=== PATIENT | female | born 1955 | race African-American/Black ===

== ENCOUNTER 2022-05-21 12:50 | Inpatient (IN) | payer OTHER ==
[~2022-05-21] VITALS: Ht 157.5 cm; Wt 85.3 kg
[2022-05-21] MEDS ORDERED: LIDOCAINE HCL/PF 1% 2ML VIAL ONE (13:02)
[2022-05-21] MEDS ORDERED: FUROSEMIDE 40MG/4ML VIAL IVP ONE (14:00)
[2022-05-21] MEDS ORDERED: VANCOMYCIN 1G PREMIX 200 ML IV ONE (14:15)
[2022-05-21] MEDS ORDERED: PIPERACILLIN/TAZ 3.375G PREMIX 50 ML IV ONE (14:15)
[2022-05-21 14:28] LABS: BASOPHILS % 0.7 % (0.0-2.0); EOSINOPHILS % 1.1 % (0.0-5.0); HEMOGLOBIN. 10.1 g/dL (12.0-16.0); LYMPHOCYTES % 11.3 % (20.0-50.0); MEAN CORPUSCULAR HEMOGLOBIN 19.6 pg (28.0-32.0); MEAN CORPUSCULAR VOLUME 65.9 fL (81.0-99.0); MEAN PLATELET VOLUME 7.7 fl (7.4-10.4); MONOCYTES % 7.3 % (2.0-8.0); NEUTROPHILS % 79.6 % (40.0-76.0); PLATELET 390 x1000/uL (130-400); RED BLOOD CELL COUNT 5.17 mill/uL (4.2-5.4); RED CELL DISTRIBUTION WIDTH 21.1 % (11.6-14.6)
[2022-05-21 14:35] LABS: CHLORIDE 100 mEq/L (98-107)
[2022-05-21 15:00] LABS: PLATELET ESTIMATE NORMAL
[2022-05-21 15:14] LABS: BG BASE EXCESS 0.7 mmol/L (-2.0-2.0); BG CARBOXYHEMOGLOBIN 0.7 % (0.5-1.5); BG DEOXYHEMOGLOBIN 3.2 % (0.0-5.0); BG FRACTION INSPIRED OXYGEN 50; BG HCO3 ACT 24.5 mmol/L (22.0-26.0); BG METHEMOGLOBIN 0.5 % (0.0-1.5); BG OXYGEN SATURATION 96.8 % (92.0-98.5); BG OXYHEMOGLOBIN 95.6 % (94.0-97.0); BG PCO2 36.2 mmHg (35.0-45.0); BG PH 7.449 (7.350-7.450); BG PO2 93.7 mmHg (75.0-100.0); BG SAMPLE SITE LEFT RADIAL; BG TOTAL HEMOGLOBIN 10.5 g/dL (12.0-18.0); BG VENT MODE MASK - BIPAP
[2022-05-21] MEDS ORDERED: VANCOMYCIN 1GM PMX (XELLIA) 200 ML IV NR (15:45)
[2022-05-21] MEDS ORDERED: IPRATROPIUM/ALBUTEROL 0.5-3(2.5)MG/3ML NEB HHN PRN ×2 (16:15→17:00)
[2022-05-21 16:47] LABS: CHLORIDE 100 mEq/L (98-107)
[2022-05-21] MEDS ORDERED: CLONIDINE 0.1MG TABLET PO PRN (17:00)
[2022-05-21] MEDS ORDERED: GUAIFENESIN 200MG/10ML SUGAR FREE UDC PO PRN (17:00)
[2022-05-21] MEDS ORDERED: ONDANSETRON HCL 4MG/2ML INJ IV PRN (17:00)
[2022-05-21] MEDS ORDERED: MAGNESIUM/ALUMINUM HYDROXIDE/SIMETHICONE 30ML UDC PO PRN (17:00)
[2022-05-21] MEDS ORDERED: DOCUSATE SODIUM 100MG CAPSULE PO PRN (17:00)
[2022-05-21] MEDS ORDERED: ACETAMINOPHEN 325MG TABLET PO PRN (17:00)
[2022-05-21] MEDS ORDERED: CEFTRIAXONE 1 G PREMIX 50 ML IV SCH (17:00)
[2022-05-21 17:10] LABS: CLARITY URINE CLEAR (CLEAR); COLOR URINE YELLOW (YELLOW); KETONES URINE NEGATIVE (NEGATIVE); LEUKOCYTE ESTERASE URINE 1+ (NEGATIVE); NITRITE URINE NEGATIVE (NEGATIVE); OCCULT BLOOD URINE 3+ (NEGATIVE); PH URINE 5.5 (4.5-8.0); PROTEIN URINE TRACE (NEGATIVE); SPECIFIC GRAVITY URINE 1.012 (1.005-1.030)
[2022-05-21] MEDS ORDERED: AZITHROMYCIN 500 MG in DEXT 5% WATER 250 ML IV SCH (17:15)
[2022-05-21] MEDS: IPRATROPIUM BROMIDE (0.02%) 0.5MG/2.5ML NEB HHN SCH ×2 (20:35→23:17)
[2022-05-21] MEDS: AMLODIPINE 10MG TABLET PO SCH (21:12)
[2022-05-21] MEDS: ENOXAPARIN 40MG/0.4ML SYR SUBCUT SCH (21:14)
[2022-05-21] MEDS: CEFTRIAXONE 1,000 MG in DEXTROSE 5% WATER 50 ML IV SCH (21:14)
[2022-05-22] VITALS (11 sets, daily range): BP systolic 98–122; BP diastolic 62–81
[2022-05-22] MEDS: TRAMADOL 50MG TABLET PO PRN ×2 (02:34→17:55)
[2022-05-22] MEDS: IPRATROPIUM BROMIDE (0.02%) 0.5MG/2.5ML NEB HHN SCH ×5 (04:55→20:36)
[2022-05-22] MEDS: AMLODIPINE 10MG TABLET PO SCH (08:43)
[2022-05-22 10:40] LABS: BASOPHILS % 0.6 % (0.0-2.0); EOSINOPHILS % 0.8 % (0.0-5.0); HEMATOCRIT. 30.6 % (36.0-48.0); LYMPHOCYTES % 8.8 % (20.0-50.0); MEAN CORPUSCULAR HEMOGLOBIN 19.3 pg (28.0-32.0); MEAN CORPUSCULAR VOLUME 65.4 fL (81.0-99.0); MEAN PLATELET VOLUME 7.4 fl (7.4-10.4); MONOCYTES % 10.2 % (2.0-8.0); NEUTROPHILS % 79.6 % (40.0-76.0); PLATELET 317 x1000/uL (130-400); RED BLOOD CELL COUNT 4.67 mill/uL (4.2-5.4); RED CELL DISTRIBUTION WIDTH 21.2 % (11.6-14.6)
[2022-05-22 10:52] LABS: CHLORIDE 99 mEq/L (98-107)
[2022-05-22 10:57] LABS: INR 1.1; PROTHROMBIN TIME 11.5 sec (9.6-11.0)
[2022-05-22 10:59] LABS: HDL CHOLESTEROL 23 mg/dL (40-59); LDL CHOLESTEROL 108 mg/dL (5-100)
[2022-05-22] MEDS ORDERED: BISACODYL 10MG SUPP PR NR (17:30)
[2022-05-22] MEDS: PANTOPRAZOLE SODIUM 40 MG/VIAL IV SCH (17:54)
[2022-05-22] MEDS: CEFTRIAXONE 1,000 MG in DEXTROSE 5% WATER 50 ML IV SCH (17:55)
[2022-05-22] MEDS: ENOXAPARIN 40MG/0.4ML SYR SUBCUT SCH (18:00)
[2022-05-22 18:25] LABS: TOTAL IRON BINDING CAPACITY 193 ug/dL (250-450)
[2022-05-22 18:55] LABS: FOLIC ACID (FOLATE) SERUM 13.6 ng/mL (>5.38)
[2022-05-22] MEDS: AZITHROMYCIN 500 MG in DEXT 5% WATER 250 ML IV SCH (20:10)
[2022-05-23] VITALS (10 sets, daily range): BP systolic 86–142; BP diastolic 52–75
[2022-05-23] MEDS: IPRATROPIUM BROMIDE (0.02%) 0.5MG/2.5ML NEB HHN SCH ×6 (00:30→20:49)
[2022-05-23 06:00] LABS: CHLORIDE 101 mEq/L (98-107)
[2022-05-23 06:27] LABS: BASOPHILS % 0.4 % (0.0-2.0); EOSINOPHILS % 2.3 % (0.0-5.0); HEMATOCRIT. 28.9 % (36.0-48.0); HEMOGLOBIN. 8.7 g/dL (12.0-16.0); MEAN CORPUSCULAR HEMOGLOBIN 19.6 pg (28.0-32.0); MEAN CORPUSCULAR VOLUME 64.8 fL (81.0-99.0); MEAN PLATELET VOLUME 7.9 fl (7.4-10.4); MONOCYTES % 9.9 % (2.0-8.0); NEUTROPHILS % 76.4 % (40.0-76.0); PLATELET 306 x1000/uL (130-400); RED BLOOD CELL COUNT 4.47 mill/uL (4.2-5.4); RED CELL DISTRIBUTION WIDTH 20.9 % (11.6-14.6)
[2022-05-23] MEDS: PANTOPRAZOLE SODIUM 40 MG/VIAL IV SCH (08:51)
[2022-05-23] MEDS: AMLODIPINE 10MG TABLET PO SCH (09:00)
[2022-05-23] MEDS: IRON SUCROSE COMPLEX 100 MG/5 ML ML IV SCH (14:08)
[2022-05-23] MEDS: TRAMADOL 50MG TABLET PO PRN (16:11)
[2022-05-23] MEDS: ENOXAPARIN 40MG/0.4ML SYR SUBCUT SCH (17:36)
[2022-05-23] MEDS: CEFTRIAXONE 1,000 MG in DEXTROSE 5% WATER 50 ML IV SCH (17:36)
[2022-05-23] MEDS: AZITHROMYCIN 500 MG in DEXT 5% WATER 250 ML IV SCH (20:45)
[2022-05-24] VITALS (11 sets, daily range): BP systolic 107–130; BP diastolic 61–72
[2022-05-24] MEDS: IPRATROPIUM BROMIDE (0.02%) 0.5MG/2.5ML NEB HHN SCH ×6 (01:00→20:08)
[2022-05-24 06:26] LABS: BASOPHILS % 0.6 % (0.0-2.0); HEMATOCRIT. 28.9 % (36.0-48.0); HEMOGLOBIN. 8.5 g/dL (12.0-16.0); LYMPHOCYTES % 8.9 % (20.0-50.0); MEAN CORPUSCULAR HEMOGLOBIN 19.3 pg (28.0-32.0); MEAN CORPUSCULAR VOLUME 65.1 fL (81.0-99.0); MEAN PLATELET VOLUME 8.3 fl (7.4-10.4); NEUTROPHILS % 79.5 % (40.0-76.0); PLATELET 292 x1000/uL (130-400); RED BLOOD CELL COUNT 4.43 mill/uL (4.2-5.4); RED CELL DISTRIBUTION WIDTH 21.1 % (11.6-14.6)
[2022-05-24 07:00] LABS: CHLORIDE 97 mEq/L (98-107)
[2022-05-24] MEDS: AMLODIPINE 10MG TABLET PO SCH (09:40)
[2022-05-24] MEDS: PANTOPRAZOLE SODIUM 40 MG/VIAL IV SCH (09:40)
[2022-05-24] MEDS: TRAMADOL 50MG TABLET PO PRN (09:41)
[2022-05-24] MEDS: IRON SUCROSE COMPLEX 100 MG/5 ML ML IV SCH (11:12)
[2022-05-24] MEDS ORDERED: NALOXONE HCL 0.4MG/ML VIAL IV PRN (13:45)
[2022-05-24] MEDS: ENOXAPARIN 40MG/0.4ML SYR SUBCUT SCH (17:22)
[2022-05-24] MEDS: CEFTRIAXONE 1,000 MG in DEXTROSE 5% WATER 50 ML IV SCH (17:22)
[2022-05-24] MEDS: AZITHROMYCIN 500 MG in DEXT 5% WATER 250 ML IV SCH (20:30)
== END 2022-05-24 22:20 | disposition short-term general hospital (02) | DRG 871 ==
LOC: ER 12:50 → EDBD 12:50 → MICUSO 15:55 → EDBEDREQTM 16:00 → EDBEDREQ 16:00 → 5EST 05-22 03:32
PROVIDERS: ADMIT Hospitalist; ATTEND Hospitalist
PROC: 5A09357 Assistance with Respiratory Ventilation, Less than 24 Consecutive Hours, Continuous Positive Airway Pressure (ICD-10-PCS; 2022-05-21)
PROC: 0W993ZZ Drainage of Right Pleural Cavity, Percutaneous Approach (ICD-10-PCS; principal; 2022-05-22)
PROC: 5A09357 Assistance with Respiratory Ventilation, Less than 24 Consecutive Hours, Continuous Positive Airway Pressure (ICD-10-PCS; 2022-05-23)
DX: A41.9 Sepsis, unspecified organism (principal); J18.9 Pneumonia, unspecified organism; J96.01 Acute respiratory failure with hypoxia; E44.0 Moderate protein-calorie malnutrition; E87.1 Hypo-osmolality and hyponatremia; N39.0 Urinary tract infection, site not specified; C78.02 Secondary malignant neoplasm of left lung; I45.2 Bifascicular block; I24.9 Acute ischemic heart disease, unspecified; J91.8 Pleural effusion in other conditions classified elsewhere; D50.9 Iron deficiency anemia, unspecified; E86.1 Hypovolemia; E87.5 Hyperkalemia; R73.9 Hyperglycemia, unspecified; Z20.822 Contact with and (suspected) exposure to COVID-19; R74.01 Elevation of levels of liver transaminase levels; D49.59 Neoplasm of unspecified behavior of other genitourinary organ; D25.9 Leiomyoma of uterus, unspecified; D49.89 Neoplasm of unspecified behavior of other specified sites; F17.200 Nicotine dependence, unspecified, uncomplicated; Z80.49 Family history of malignant neoplasm of other genital organs; Z80.3 Family history of malignant neoplasm of breast; Z82.49 Family history of ischemic heart disease and other diseases of the circulatory system; Z83.3 Family history of diabetes mellitus; Z68.34 Body mass index [BMI] 34.0-34.9, adult
CPT/HCPCS: 32555; 36415; 36600; 71045; 71250; 74018; 74176; 76705; 80048; 80053; 80061; 81003; 82040; 82105; 82150; 82270; 82375; 82378; 82607; 82728; 82746; 82805; 83540; 83550; 83605; 83615; 83880; 84145; 84155; 84484; 85025; 85044; 86140; 86301; 87426; 88108; 88312; 93005; 93970; 94640; 94660; 99291; C9113; J0456; J0696; J1650; J1940; J2543; J3370; J3490; J7060